=== PATIENT | female | born 1995 | race Caucasian/White ===

== ENCOUNTER 2021-01-01 19:26 | Inpatient (IN) | payer BC ==
[~2021-01-01] VITALS: Ht 157.5 cm; Wt 111.7 kg
[2021-01-01 20:16] LABS: BASOPHILS % (AUTO) 0.7 % (0.0-2.0); EOSINOPHILS % (AUTO) 1.2 % (1.0-6.0); HEMATOCRIT 41.1 % (36-46); HEMOGLOBIN 13.4 g/dL (12.0-16.0); LYMPHOCYTES # (AUTO) 2.8 K/uL (1.0-4.8); LYMPHOCYTES % (AUTO) 28.3 % (22.0-44.0); MEAN CORPUSCULAR HEMOGLOBIN 26.9 pg (26.0-34.0); MEAN CORPUSCULAR HGB CONC 32.7 G/dL (31.0-37.0); MEAN CORPUSCULAR VOLUME 82 fL (80-100); MONOCYTES # (AUTO) 0.5 K/uL (0.1-1.0); NEUTROPHILS # (AUTO) 6.3 K/uL (1.8-7.7); NEUTROPHILS % (AUTO) 64.8 % (40.0-70.0); PLATELET COUNT (AUTO) 352 K/uL (150-450); RED BLOOD CELL COUNT(AUTO) 4.99 MIL/uL (4.00-5.20); RED CELL DISTRIBUTION WIDTH 14.8 % (11.5-14.5)
[2021-01-01 20:35] LABS: ANION GAP 9 mmol/L (8-16); CALCIUM, TOTAL 9.5 mg/dL (8.8-10.5); CARBON DIOXIDE 27 mmol/L (22-29); CHLORIDE 106 mmol/L (98-107); GLOMERULAR FILTR. RATE CALC > 60 mL/min (>60); GLUCOSE,RANDOM 112 mg/dL (70-110); POTASSIUM 3.6 mmol/L (3.5-5.1); SODIUM SERUM 142 mmol/L (136-145); UREA NITROGEN, BLOOD 14 mg/dL (7-18)
[2021-01-01 20:47] LABS: ALANINE AMINOTRANSFERASE 37 U/L (12-78); ALBUMIN 3.9 g/dL (3.4-5.0); ALKALINE PHOSPHATASE 156 U/L (46-116); ASPARTATE AMINOTRANSFERASE 18 U/L (15-37); BILIRUBIN,TOTAL 0.3 mg/dL (0.1-1.0); HCG,QUANTITATIVE < 1 mIU/mL (0-6); TOTAL PROTEIN, SERUM 7.9 g/dL (6.4-8.2)
[2021-01-01 20:56] LABS: BARBITURATE SCREEN, URINE NEGATIVE (NEGATIVE); METHADONE SCREEN, URINE NEGATIVE (NEGATIVE)
[2021-01-01] MEDS ORDERED: ZOLPIDEM TARTRATE 10 MG TABLET PO PRN (21:00)
[2021-01-01] MEDS ORDERED: LORazepam 2 MG TABLET PO PRN (21:00)
[2021-01-01] MEDS ORDERED: OLANZapine 5 MG RAPDIS TABLET PO PRN (21:00)
[2021-01-01 21:03] LABS: COVID AG,FIA SOURCE NASOPHARYNGEAL
[2021-01-01 21:04] LABS: AMPHET/METH SCREEN,URINE NEGATIVE (NEGATIVE); BENZODIAZEPINES SCREEN,URINE NEGATIVE (NEGATIVE); CANNABINOID SCREEN,URINE NEGATIVE (NEGATIVE); COCAINE SCREEN,URINE NEGATIVE (NEGATIVE); OPIATE SCREEN,URINE NEGATIVE (NEGATIVE)
[2021-01-01 21:05] LABS: PHENCYCLIDINE SCREEN,URINE NEGATIVE (NEGATIVE)
[2021-01-02 01:00] VITALS: BP 114/72
[2021-01-02 06:51] LABS: CHOL/HDL RATIO 3.7 (3.9-5.7)
[2021-01-02 08:08] VITALS: BP 112/70
[2021-01-02] MEDS ORDERED: MAG HYDROX/AL HYDROX/SIMETH ES 30 ML SUSPENSION UDCUP PO PRN (11:30)
[2021-01-02] MEDS ORDERED: MAGNESIUM HYDROXIDE SUSPENSION 30 ML UDCUP PO PRN (11:30)
[2021-01-02] MEDS ORDERED: GuaiFENesin/D-METHORPHAN [SUGAR-FREE] 200-20MG/10 ML SYRUP UDCUP PO PRN (11:30)
[2021-01-02] MEDS ORDERED: ACETAMINOPHEN 325 MG TABLET PO PRN (11:30)
[2021-01-02] MEDS ORDERED: TUBERCULIN, PURIFIED PROTEIN DERIVATIVE 5 TU/0.1 ML SYRINGE ID ONE (11:30)
[2021-01-02] MEDS ORDERED: LOPERAMIDE HCL 2 MG CAPSULE PO PRN (11:30)
[2021-01-02] MEDS ORDERED: HydrOXYzine PAMOATE 50 MG CAPSULE PO PRN (11:30)
[2021-01-02] MEDS ORDERED: PROMETHAZINE HCL 25 MG TABLET PO PRN (11:30)
[2021-01-02 16:00] VITALS: BP 108/75
[2021-01-02] MEDS: THIAMINE 100 MG TABLET PO SCH (16:12)
[2021-01-02] MEDS: MELATONIN 5 MG TABLET PO SCH (20:39)
[2021-01-02] MEDS: ARIPiprazole 5 MG TABLET PO SCH (20:39)
[2021-01-03 07:22] LABS: ALANINE AMINOTRANSFERASE 36 U/L (12-78); ALBUMIN 3.6 g/dL (3.4-5.0); ALKALINE PHOSPHATASE 143 U/L (46-116); ANION GAP 9 mmol/L (8-16); ASPARTATE AMINOTRANSFERASE 14 U/L (15-37); BILIRUBIN,TOTAL 0.5 mg/dL (0.1-1.0); CALCIUM, TOTAL 9.2 mg/dL (8.8-10.5); CARBON DIOXIDE 26 mmol/L (22-29); CHLORIDE 104 mmol/L (98-107); CREATININE 0.68 mg/dL (0.60-1.30); FREE T4 (FREE THYROXINE) 1.02 ng/dL (0.76-1.46); GLOMERULAR FILTR. RATE CALC > 60 mL/min (>60); GLUCOSE,RANDOM 88 mg/dL (70-110); POTASSIUM 4.4 mmol/L (3.5-5.1); SODIUM SERUM 139 mmol/L (136-145); THYROID STIMULATING HORMONE 1.47 uIU/mL (0.36-3.74); TOTAL PROTEIN, SERUM 7.4 g/dL (6.4-8.2); UREA NITROGEN, BLOOD 14 mg/dL (7-18)
[2021-01-03 07:44] LABS: HEMOGLOBIN A1C 5.1 % (3.8-5.6)
[2021-01-03 08:17] VITALS: BP 111/70
[2021-01-03] MEDS: FOLIC ACID 1 MG TABLET PO SCH (08:38)
[2021-01-03] MEDS: MULTIVITAMINS WITH MINERALS, THERAPEUTIC TABLET PO SCH (08:38)
[2021-01-03] MEDS: FLUoxetine HCL 20 MG CAPSULE PO SCH (08:38)
[2021-01-03] MEDS: THIAMINE 100 MG TABLET PO SCH ×2 (08:38→16:33)
[2021-01-03] MEDS: OMEGA-3/DHA/EPA/FISH OIL 1,000 MG CAPSULE PO SCH (08:38)
[2021-01-03] MEDS: NALTREXONE HCL 50 MG TABLET PO SCH (08:41)
[2021-01-03] MEDS ORDERED: ARIPiprazole 5 MG TABLET PO SCH (09:00)
[2021-01-03] MEDS ORDERED: FLUoxetine HCL 20 MG CAPSULE PO SCH (09:00)
[2021-01-03 16:00] VITALS: BP 114/79
[2021-01-03] MEDS ORDERED: MELA5TAB3 PO (18:43)
[2021-01-03] MEDS ORDERED: OMEG-135 PO (18:43)
[2021-01-03] MEDS ORDERED: FLUO-191 PO (18:43)
[2021-01-03] MEDS ORDERED: ARIP5TAB8 PO (18:43)
[2021-01-03] MEDS ORDERED: NALT50TA PO (18:43)
[2021-01-03] MEDS: MELATONIN 5 MG TABLET PO SCH (21:04)
[2021-01-03] MEDS: ARIPiprazole 5 MG TABLET PO SCH (21:04)
[2021-01-04 08:00] VITALS: BP 112/60
[2021-01-04] MEDS: MULTIVITAMINS WITH MINERALS, THERAPEUTIC TABLET PO SCH (08:33)
[2021-01-04] MEDS: FLUoxetine HCL 20 MG CAPSULE PO SCH (08:33)
[2021-01-04] MEDS: THIAMINE 100 MG TABLET PO SCH (08:34)
[2021-01-04] MEDS: OMEGA-3/DHA/EPA/FISH OIL 1,000 MG CAPSULE PO SCH (08:34)
[2021-01-04] MEDS: FOLIC ACID 1 MG TABLET PO SCH (08:34)
[2021-01-04] MEDS: NALTREXONE HCL 50 MG TABLET PO SCH (08:40)
[2021-01-04] MEDS ORDERED: THIA100T80 PO (09:41)
[2021-01-04] MEDS ORDERED: MULT-1239 PO (09:41)
[2021-01-04] MEDS ORDERED: FOLI-130 PO (09:41)
== END 2021-01-04 13:41 | disposition home or self-care (01) | DRG 885 ==
LOC: EMS 19:26 → 3EI 20:58
PROVIDERS: ADMIT Psychiatry & Neurology Psychiatry; ATTEND Psychiatry & Neurology Psychiatry
DX: F33.2 Major depressive disorder, recurrent severe without psychotic features (principal); R45.851 Suicidal ideations; Z20.822 Contact with and (suspected) exposure to COVID-19; F41.9 Anxiety disorder, unspecified; Z91.012 Allergy to eggs; Z88.0 Allergy status to penicillin; Z81.8 Family history of other mental and behavioral disorders; Z55.9 Problems related to education and literacy, unspecified; Z59.9 Problem related to housing and economic circumstances, unspecified; Z65.3 Problems related to other legal circumstances
CPT/HCPCS: 83036; 84439; 84443; 87426; 99285; A9575; G0480